=== PATIENT | female | born 1940 | race Caucasian/White ===

== ENCOUNTER → 2019-02-25 | Outpatient (CLI) | payer MEDICARE ==
--- NOTE | 2019-02-25 10:06 | Diagnostic Imaging Report ---
EXAM: Right upper quadrant abdominal ultrasound INDICATION: Right upper quadrant pain COMPARISON: None. TECHNIQUE: Transverse and longitudinal images of the right upper quadrant abdomen were obtained FINDINGS: Liver: Size: 13.3 cm in the right midclavicular line, normal Appearance: Normal echogenicity, smooth contour Mass: No focal masses Gallbladder: Multiple small calculi in the gallbladder. No cholecystic fluid, gallbladder distention, gallbladder wall thickening or reported sonographic Campo's sign. Gallbladder wall measures 2 mm. Bile Ducts: Intrahepatic Ducts: No dilatation Extrahepatic Ducts: Common bile duct measures 3 mm, no dilatation Pancreas: Visualized portions of the pancreatic head, neck and proximal body are normal. Kidney: The right kidney measures 10.4 cm without evidence of hydronephrosis or stone. Vessels: Aorta: Visualized portions are normal Inferior Vena Cava: Visualized portions are normal Main Portal Vein: 1.0 cm, normal size with hepatopetal flow. Free Fluid: No ascites or pleural effusion IMPRESSION: Cholelithiasis without sonographic evidence of acute cholecystitis. Signed by: Alessandro Norman MD on 02/25/2019 9:59 AM
== END ==
LOC: US 07:54
PROVIDERS: ATTEND Surgery
DX: R10.11 Right upper quadrant pain (principal)
CPT/HCPCS: 76705

== ENCOUNTER → 2019-03-15 | Day surgery (SDC) | payer MEDICARE ==
[2019-03-13 15:22] LABS: BILIRUBIN,URINE NEGATIVE (NEGATIVE); CLARITY,URINE SL CLOUDY (CLEAR); COLOR,URINE YELLOW (YELLOW); KETONES,URINE NEGATIVE (NEGATIVE); LEUKOCYTE ESTERASE ,URINE SMALL (NEGATIVE); NITRITE,URINE NEGATIVE (NEGATIVE); PROTEIN,URINE DIPSTICK NEGATIVE (NEGATIVE); URINE UROBILINOGEN 2 mg/dL (0.2 - 1)
--- NOTE | 2019-03-13 15:28 | Diagnostic Imaging Report ---
EXAMINATION: CHEST 2 VIEWS INDICATION: Pre-operative COMPARISON: None FINDINGS: LINES/TUBES:None LUNGS:The lungs are well-inflated. No focal consolidation or pulmonary edema. PLEURA:No pleural effusion or pneumothorax. MEDIASTINUM: The thoracic aorta is aneurysmal and tortuous with atherosclerotic calcifications. The heart is not enlarged. BONES/SOFT TISSUES:No acute osseous injury. ABDOMEN:No free air under the diaphragm. IMPRESSION: No focal pneumonia or pulmonary edema. Thoracic aortic aneurysm. Recommend further evaluation with chest CTA. Signed by: Alessandro Norman MD on 03/13/2019 3:25 PM
[~2019-03-15] MED LIST: ACETAMINOPHEN 1000 MG/100 ML IV ONE; ASPIRIN81 MG PO; BUPIVACAINE 0.25%/EPI 30ML SDV INJ ONE; CILOSTAZOL100 MG PO; CLOPIDOGREL75 MG PO; CRESTOR10 MG PO; DEXAMETHASONE SOD PHOS INJ 4 MG/ML VIAL ONE; FENTANYL CITRATE/PF 100MCG/2 ML INJ ONE; GLYBURIDE5 MG PO; GLYCOPYRROLATE INJ 1MG/ 5 ML SYR ONE; JANUVIA100 MG PO; LIDOCAINE HCL 2% JELLY 5 ML TUBE ONE; LIDOCAINE HCL 2% LOCAL INJ 5 ML SDV VIAL INJ ONE; LOTREL 5-10 MG1 EACH PO; MIDAZOLAM HCL 2 MG/2 ML VIAL ONE; MORPHINE SULFATE INJ 4 MG/ML INJ 1ML ONE; NEOSTIGMINE 5 MG/5ML SYR ONE; ONCE DAILY1 EACH PO; ONDANSETRON HCL INJ 2MG/ML 2ML 2 MG/ML VIAL ONE; PANTOPRAZOLE SO40 MG PO; POTASSIUM99 M1 PO; PROPOFOL IV EMULSION 10 MG/ML 20 ML VIAL ONE; ROCURONIUM BROMIDE 10 MG/ML 5ML VIAL ONE; SEVOFLURANE INHAL SOLN 250 ML PEN BTL ONE
--- OUTSIDE RECORDS SUMMARY | 2019-03-15 08:16 | XMS REPORT ---
Author [facility] Address Unknown Phone Unavailable Care Team Providers Care Skatesman Name Role Phone Lionel SAUNDERS Unavailable Unavailable FRANKIE ARMAS Unavailable Unavailable Problems This patient has no known problems. Allergies, Adverse Reactions, Alerts This patient has no known allergies or adverse reactions. Medications This patient has no known medications. Results Test Description Test Time Test Comments Text Results Atomic Results Result Comments CHEST 2 VIEWS 2019-03-13 15:23:00 [place] [address] Patient Name: CHRYSTAL ELMORE MR #: [id number] : 1940 Age/Sex: 78/F Req #: [id number] Adm Physician: Ordered by: RYAN SAUNDERS MD Report #: [id number] Location: OR Room/Bed: Procedure: [id number] DX/CHEST 2 VIEWS Exam Date: 03/13/19 Exam Time: 1510 REPORT STATUS: Signed EXAMINATION: CHEST 2 VIEWS INDICATION: Pre-operative COMPARISON: None FINDINGS: LINES/TUBES:None LUNGS:The lungs are well-inflated. No focal consolidation or pulmonary edema. PLEURA:No pleural effusion or pneumothorax. MEDIASTINUM: The thoracic aorta is aneurysmal and tortuous with atherosclerotic calcifications. The heart is not enlarged. BONES/SOFT TISSUES:No acute osseous injury. ABDOMEN:No free air under the diaphragm. IMPRESSION: No focal pneumonia or pulmonary edema. Thoracic aortic aneurysm. Recommend further evaluation with chest CTA. Signed by: Malathi Rahman MD on 03/13/2019 3:25 PM Dictated By: MALATHI RAHMAN MD 1525 Transcribed By: MARIA VICTORIA on 03/13/19 1525 COPY TO: RYAN SAUNDERS MD GALLBLADDER 2019-02-25 09:58:00 [place] [address] Patient Name: CHRYSTAL ELMORE MR #: [id number] : 1940 Age/Sex: 78/F Req #: [id number] Adm Physician: Ordered by: RYAN SAUNDERS MD Report #: [id number] Location: Room/Bed: Procedure: [id number] US/US GALLBLADDER Exam Date: 02/25/19 Exam Time: 0831 REPORT STATUS: Signed EXAM: Right upper quadrant abdominal ultrasound INDICA TION: Right upper quadrant pain COMPARISON: None. TECHNIQUE: Transverse and longitudinal images of the right upper quadrant abdomen were obtained FINDINGS: Liver: Size: 13.3 cm in the right midclavicular line, normal Appearance: Normal echogenicity, smooth contour Mass: No focal masses Gallbladder: Multiple small calculi in the gallbladder. No cholecystic fluid, gallbladder distention, gallbladder wall thickening or reported sonographic Campo's sign. Gallbladder wall measures 2 mm. Bile Ducts: Intrahepatic Ducts: No dilatation Extrahepatic Ducts: Common bile duct measures 3 mm, no dilatation Pancreas: Visualized portions of the pancreatic head, neck and proximal body are normal. Kidney: The right kidney measures 10.4 cm without evidence of hydronephrosis or stone. Vessels: Aorta: Visualized portions are normal Inferior Vena Cava: Visualized portions are normal Main Portal Vein: 1.0 cm, normal size with hepatopetal flow. Free Fluid: No ascites or pleural effusion IMPRESSION: Cholelithiasis without sonographic evidence of acute cholecystitis. Signed by: Mlaathi Rahman MD on 02/25/2019 9:59 AM Dictated By: MALATHI RAHMAN MD 8 Transcribed By: MARIA VICTORIA on 02/25/19958 COPY TO: RYAN SAUNDERS MD TISSUE EXAM 2017-09-22 16:13:00 Surgical Pathology Report Case: [id number] Authorizing Provider: Solis Armas, Collected: 09/18/2017 1448 Ordering Location: [facility] Received: 09/18/2017 1603 PERIOPERATIVE SERVICES Pathologist: Shaun Argueta MD Specimen: Car otid, Left, Left carotid artery plaque ARTERY, LEFT CAROTID, ENDARTERECTOMY:CALCIFIC ATHEROSCLEROTIC PLAQUE WITH FOCAL PLAQUE EROSION AND FIBRIN THROMBOSIS Signing Pathologist Direct Phone Line: [phone] signed by Shaun Argueta MD on 09/22/2017 at 4:13 [id number]; [id number] carotid stenosisA. Left carotid artery plaqueThe specimen is received in a saline labeled with the patient's information and labeled "left carotid artery plaque" and consists of a calcified tubular shaped segment of tissue measuring 3 cm in length x 0.5 cm in diameter. Java Security Architect sections are submitted A1 for decalcification. DB/plPerformed POCT-GLUCOSE METER 2017-09-20 12:32:00 POC-GLUCOSE METER (BEAKER) (test jjzz=7419) 131 mg/dL 70-110 TESTED AT [place] [id number] [facility] [address] POCT-GLUCOSE [id number] 08:28:00* Test Item Value Reference Range Comments POC-GLUCOSE METER (BEAKER) (test djop=4902) 172 mg/dL 70-110 TESTED AT [place] [id number] [facility] [address] [id number] 06:34:00* Test Item Value Reference Range Comments PHOSPHORUS (BEAKER) (test uhhh=406) 2.4 mg/dL 2.3-4.7 [id number] 06:34:00* Test Item Value Reference Range Comments MAGNESIUM (BEAKER) (test zqti=757) 1.9 mg/dL 1.6-2.6 BASIC METABOLIC [id number] 06:34:00* Test Item Value Reference Range Comments SODIUM (BEAKER) (test nykc=336) 139 meq/L 136-145 POTASSIUM (BEAKER) (test akua=239) 4.0 meq/L 3.5-5.1 CHLORIDE (BEAKER) (test hnht=173) 104 meq/L 98-107 CO2 (BEAKER) (test kyzq=546) 28 meq/L 22-29 BLOOD UREA NITROGEN (BEAKER) (test gcmj=740) 9 mg/dL 7-21 CREATININE (BEAKER) (test ehjt=059) 0.58 mg/dL 0.57-1.25 GLUCOSE RANDOM (BEAKER) (test apsc=060) 158 mg/dL 70-105 CALCIUM (BEAKER) (test wipy=275) 8.5 mg/dL 8.4-10.2 EGFR (BEAKER) (test wtxa=5675) 100 mL/min/1.73 sq m ESTIMATED GFR IS NOT ACCURATE CREATININE CLEARANCE IN PREDICTING GLOMERULAR FILTRATION RATE. ESTIMATED GFR IS NOT APPLICABLE FOR DIALYSIS PATIENTS. [id number] 05:16:00* Test Item Value Reference Range Comments PARTIAL THROMBOPLASTIN TIME (BEAKER) (test hqmz=259) 31.4 seconds 22.5-36.0 PROTHROMBIN TIME/[id number] 05:15:00* Test Item Value Reference Range Comments PROTIME (BEAKER) (test zdym=688) 13.9 seconds 11.7-14.7 INR (BEAKER) (test inlu=756) 1.1 <=5.9 RECOMMENDED COUMADIN/WARFARIN INR THERAPY RANGESSTANDARD DOSE: 2.0 - 3.0 Inclu elise: PROPHYLAXIS for venous thrombosis, systemic embolization; TREATMENT for suman ous thrombosis and/or pulmonary embolus.HIGH RISK: Target INR is 2.5-3.5 for pat ients with mechanical heart valves.CBC (HEMOGRAM ONLY)2017-09-20 05:05:00* Test Item Value Reference Range Comments WHITE BLOOD CELL COUNT (BEAKER) (test nkln=554) 9.7 K/ L 3.5-10.5 RED BLOOD CELL COUNT (BEAKER) (test joru=134) 4.33 M/ L 3.93-5.22 HEMOGLOBIN (BEAKER) (test srjz=194) 12.0 GM/DL 11.2-15.7 HEMATOCRIT (BEAKER) (test bqgp=815) 37.8 % 34.1-44.9 MEAN CORPUSCULAR VOLUME (BEAKER) (test ziyp=201) 87.3 fL 79.4-94.8 MEAN CORPUSCULAR HEMOGLOBIN (BEAKER) (test xipb=876) 27.7 pg 25.6-32.2 MEAN CORPUSCULAR HEMOGLOBIN CONC (BEAKER) (test ukqj=222) 31.7 GM/DL 32.2-35.5 RED CELL DISTRIBUTION WIDTH (BEAKER) (test laqb=820) 15.3 % 11.7-14.4 PLATELET COUNT (BEAKER) (test xefw=059) 191 K/CU MM 150-450 MEAN PLATELET VOLUME (BEAKER) (test xefq=004) 11.0 fL 9.4-12.3 NUCLEATED RED BLOOD CELLS (BEAKER) (test puow=438) 0 /100 WBC 0-0 POCT-GLUCOSE [id number] 21:02:00* Test Item Value Reference Range Comments POC-GLUCOSE METER (BEAKER) (test enal=7077) 144 mg/dL 70-110 TESTED AT [place] [id number] [facility] [address] POCT-GLUCOSE [id number] 17:36:00* Test Item Value Reference Range Comments POC-GLUCOSE METER (BEAKER) (test qhkb=9579) 177 mg/dL 70-110 TESTED AT [place] [id number] [facility] [address] POCT-GLUCOSE [id number] 14:10:00* Test Item Value Reference Range Comments POC-GLUCOSE METER (BEAKER) (test xehf=8536) 182 mg/dL 70-110 TESTED AT [place] [id number] [facility] [address] RAD, CHEST, 1 VIEW, NON [id number] 13:56:00Reason for exam:->hypoxiaShould this be performed at the bedside?->YesFINAL REPORT TECHNIQUE: Frontal chest radiograph dated 09/19/2017. CLINICAL HISTORY: Hypoxia COMPARISON STUDY: Chest radiograph dated 09/12/[address] dated 09/05/2017 IMPRESSION:Bibasilar atelectasis is present. The lungs are otherwise clear. No pleural effusion or pneumothorax. Cardiomediastinal silhouette is stable in size. Aneurysm of the descending thoracic aorta is again identified. No pulmonary edema. No fracture. Degenerative changes are seen in the spine. IMPRESSION: Bibasilar atelectasis. Signed: Gisel Gamez MDReport Verified Date/Time: 09/19/2017 13:56:35 Reading Location: [facility] Radiology Reading Room C METABOLIC [id number] 03:30:00* Test Item Value Reference Range Comments SODIUM (BEAKER) (test edgf=668) 137 meq/L 136-145 POTASSIUM (BEAKER) (test pdzl=094) 4.4 meq/L 3.5-5.1 CHLORIDE (BEAKER) (test uvjn=704) 106 meq/L 98-107 CO2 (BEAKER) (test mxdv=251) 22 meq/L 22-29 BLOOD UREA NITROGEN (BEAKER) (test zbks=314) 13 mg/dL 7-21 CREATININE (BEAKER) (test uksl=532) 0.58 mg/dL 0.57-1.25 GLUCOSE RANDOM (BEAKER) (test sikp=974) 146 mg/dL 70-105 CALCIUM (BEAKER) (test mdkv=583) 7.9 mg/dL 8.4-10.2 EGFR (BEAKER) (test lvvo=3044) 100 mL/min/1.73 sq m ESTIMATED GFR IS NOT ACCURATE CREATININE CLEARANCE IN PREDICTING GLOMERULAR FILTRATION RATE. ESTIMATED GFR IS NOT APPLICABLE FOR DIALYSIS PATIENTS. [id number] 03:26:00* Test Item Value Reference Range Comments PHOSPHORUS (BEAKER) (test pzsb=964) 3.8 mg/dL 2.3-4.7 [id number] 03:26:00* Test Item Value Reference Range Comments MAGNESIUM (BEAKER) (test xjln=330) 1.8 mg/dL 1.6-2.6 [id number] 03:24:00* Test Item Value Reference Range Comments PARTIAL THROMBOPLASTIN TIME (BEAKER) (test ovga=386) 28.0 seconds 22.5-36.0 PROTHROMBIN TIME/[id number] 03:23:00* Test Item Value Reference Range Comments PROTIME (BEAKER) (test synj=428) 14.4 seconds 11.7-14.7 INR (BEAKER) (test gddt=865) 1.1 <=5.9 RECOMMENDED COUMADIN/WARFARIN INR THERAPY RANGESSTANDARD DOSE: 2.0 - 3.0 Inclu elise: PROPHYLAXIS for venous thrombosis, systemic embolization; TREATMENT for suman ous thrombosis and/or pulmonary embolus.HIGH RISK: Target INR is 2.5-3.5 for pat ients with mechanical heart valves.LACTIC ACID, VENOUS, WHOLE [id number] 03:23:00* Test Item Value Reference Range Comments LACTATE BLOOD VENOUS (2) (BEAKER) (test oseu=6767) 0.9 mmol/L 0.5-2.2 Effective 09/02/2015: Units/Reference Range ChangeNew: 0.5-2.2 mmol/L Previous: 5 -20 mg/dLCBC (HEMOGRAM ONLY)2017-09-19 03:13:00* Test Item Value Reference Range Comments WHITE BLOOD CELL COUNT (BEAKER) (test otmp=051) 8.3 K/ L 3.5-10.5 RED BLOOD CELL COUNT (BEAKER) (test gyhl=841) 4.49 M/ L 3.93-5.22 HEMOGLOBIN (BEAKER) (test mzkk=116) 12.2 GM/DL 11.2-15.7 HEMATOCRIT (BEAKER) (test anoq=599) 40.7 % 34.1-44.9 MEAN CORPUSCULAR VOLUME (BEAKER) (test kala=682) 90.6 fL 79.4-94.8 MEAN CORPUSCULAR HEMOGLOBIN (BEAKER) (test nvix=373) 27.2 pg 25.6-32.2 MEAN CORPUSCULAR HEMOGLOBIN CONC (BEAKER) (test vamc=589) 30.0 GM/DL 32.2-35.5 RED CELL DISTRIBUTION WIDTH (BEAKER) (test kdtd=325) 15.2 % 11.7-14.4 PLATELET COUNT (BEAKER) (test bmpf=168) 197 K/CU MM 150-450 MEAN PLATELET VOLUME (BEAKER) (test aqcx=717) 11.1 fL 9.4-12.3 NUCLEATED RED BLOOD CELLS (BEAKER) (test ohkw=690) 0 /100 WBC 0-0 [id number] 16:46:00* Test Item Value Reference Range Comments PHOSPHORUS (BEAKER) (test owhw=329) 3.7 mg/dL 2.3-4.7 [id number] 16:46:00* Test Item Value Reference Range Comments MAGNESIUM (BEAKER) (test aggq=682) 1.6 mg/dL 1.6-2.6 BASIC METABOLIC [id number] 16:46:00* Test Item Value Reference Range Comments SODIUM (BEAKER) (test znhb=564) 137 meq/L 136-145 POTASSIUM (BEAKER) (test yfou=273) 3.9 meq/L 3.5-5.1 CHLORIDE (BEAKER) (test mzkt=705) 104 meq/L 98-107 CO2 (BEAKER) (test izuq=025) 24 meq/L 22-29 BLOOD UREA NITROGEN (BEAKER) (test stvf=589) 14 mg/dL 7-21 CREATININE (BEAKER) (test nnqq=881) 0.63 mg/dL 0.57-1.25 GLUCOSE RANDOM (BEAKER) (test ivpb=981) 141 mg/dL 70-105 CALCIUM (BEAKER) (test jfjh=490) 8.1 mg/dL 8.4-10.2 EGFR (BEAKER) (test ypkq=5155) 91 mL/min/1.73 sq m ESTIMATED GFR IS NOT ACCURATE CREATININE CLEARANCE IN PREDICTING GLOMERULAR FILTRATION RATE. ESTIMATED GFR IS NOT APPLICABLE FOR DIALYSIS PATIENTS. [id number] 16:26:00* Test Item Value Reference Range Comments PARTIAL THROMBOPLASTIN TIME (BEAKER) (test fnci=046) 33.1 seconds 22.5-36.0 PROTHROMBIN TIME/[id number] 16:25:00* Test Item Value Reference Range Comments PROTIME (BEAKER) (test jnof=939) 16.1 seconds 11.7-14.7 INR (BEAKER) (test prid=510) 1.3 <=5.9 RECOMMENDED COUMADIN/WARFARIN INR THERAPY RANGESSTANDARD DOSE: 2.0 - 3.0 Inclu elise: PROPHYLAXIS for venous thrombosis, systemic embolization; TREATMENT for suman ous thrombosis and/or pulmonary embolus.HIGH RISK: Target INR is 2.5-3.5 for pat ients with mechanical heart valves.CBC W/PLT COUNT & AUTO [id number] 16:16:00* Test Item Value Reference Range Comments WHITE BLOOD CELL COUNT (BEAKER) (test pwik=208) 9.9 K/ L 3.5-10.5 RED BLOOD CELL COUNT (BEAKER) (test iedm=104) 4.48 M/ L 3.93-5.22 HEMOGLOBIN (BEAKER) (test ccdk=279) 12.0 GM/DL 11.2-15.7 HEMATOCRIT (BEAKER) (test qhsy=428) 38.5 % 34.1-44.9 MEAN CORPUSCULAR VOLUME (BEAKER) (test ooeg=599) 85.9 fL 79.4-94.8 MEAN CORPUSCULAR HEMOGLOBIN (BEAKER) (test mmpw=728) 26.8 pg 25.6-32.2 MEAN CORPUSCULAR HEMOGLOBIN CONC (BEAKER) (test pazz=511) 31.2 GM/DL 32.2-35.5 RED CELL DISTRIBUTION WIDTH (BEAKER) (test rils=788) 15.0 % 11.7-14.4 PLATELET COUNT (BEAKER) (test ylzs=614) 182 K/CU MM 150-450 MEAN PLATELET VOLUME (BEAKER) (test cnnh=327) 10.3 fL 9.4-12.3 NUCLEATED RED BLOOD CELLS (BEAKER) (test tier=160) 0 /100 WBC 0-0 NEUTROPHILS RELATIVE PERCENT (BEAKER) (test okos=311) 57 % LYMPHOCYTES RELATIVE PERCENT (BEAKER) (test xqki=285) 33 % MONOCYTES RELATIVE PERCENT (BEAKER) (test ywbx=348) 8 % EOSINOPHILS RELATIVE PERCENT (BEAKER) (test yhvq=804) 2 % BASOPHILS RELATIVE PERCENT (BEAKER) (test isgl=741) 1 % NEUTROPHILS ABSOLUTE COUNT (BEAKER) (test jres=862) 5.60 K/ L 1.56-6.13 LYMPHOCYTES ABSOLUTE COUNT (BEAKER) (test aqcp=886) 3.21 K/ L 1.18-3.74 MONOCYTES ABSOLUTE COUNT (BEAKER) (test evpu=191) 0.76 K/ L 0.24-0.36 EOSINOPHILS ABSOLUTE COUNT (BEAKER) (test eltf=640) 0.17 K/ L 0.04-0.36 BASOPHILS ABSOLUTE COUNT (BEAKER) (test lfsx=388) 0.06 K/ L 0.01-0.08 IMMATURE GRANULOCYTES-RELATIVE PERCENT (BEAKER) (test pxux=4928) 1 % 0-1 BLOOD GAS, [id number] 16:12:00* Test Item Value Reference Range Comments PH ARTERIAL (BEAKER) (test aomv=112) 7.35 7.35-7.45 PCO2 ARTERIAL (BEAKER) (test qfbs=711) 39 mmHg 35-45 PO2 ARTERIAL (BEAKER) (test rtvz=867) 72 mmHg 80-90 O2 SATURATION ARTERIAL (BEAKER) (test tpdo=895) 94.3 % 96.0-97.0 HCO3 ARTERIAL (BEAKER) (test nhxm=677) 21 mmol/L 21-29 BASE EXCESS ARTERIAL (BEAKER) (test mzbz=718) -4.7 mmol/L -2.0-3.0 PATIENT TEMPERATURE (BEAKER) (test pajq=8008) 36.4 C FIO2 (BEAKER) (test agle=0009) 44.0 % POCT-GLUCOSE [id number] 08:39:00* Test Item Value Reference Range Comments POC-GLUCOSE METER (BEAKER) (test kbal=0370) 143 mg/dL 70-110 TESTED AT [facility] [address] [facility] [address] RAD, CHEST, 2 [id number] 13:06:00Reason for exam:->surgeryFINAL REPORT TECHNIQUE: Frontal and lateral views of the chest. INDICATION: 77-year-old woman for preoperative evaluation for carotid end arterectomy. COMPARISON: None. FINDINGS: LINES/TUBES: None. LUNGS: The lungs ar e well inflated and clear. No consolidation or pulmonary edema. PLEURA: No pleur al effusion or pneumothorax. HEART AND MEDIASTINUM: The cardiomediastinal silhou ette is within normal limits. Atherosclerotic calcifications in the dilated tort uous thoracic aorta. SOFT TISSUES AND BONES: Degenerative changes of the visuali zed spine. Soft tissues are unremarkable. IMPRESSION:Dilated tortuous thoracic aorta. Otherwise, no acute cardiopulmonary abnormalities. Signed: Bess Phillips veport Verified Date/Time: 09/12/2017 13:06:51 Reading Location: [address] Radiology Reading Room TITIS B [id number] 12:34:00* Test Item Value Reference Range Comments HEPATITIS B CORE TOTAL ANTIBODY (BEAKER) (test wqpj=193) Nonreactive Nonreactive HEPATITIS B SURFACE ANTIBODY (BEAKER) (test tzvk=514) < mIU/mL <8.0 HEPATITIS B SURFACE ANTIGEN (2) (BEAKER) (test scwe=3156) Nonreactive Nonreactive HEPATITIS C [id number] 12:27:00* Test Item Value Reference Range Comments HEPATITIS C ANTIBODY (BEAKER) (test ztkx=142) Nonreactive Nonreactive HIV-1 ANTIGEN WITH HIV-1/2 [id number] 12:27:00* Test Item Value Reference Range Comments HIV-1 ANTIGEN WITH HIV 1\\T\\2 ANTIBODY (2) (BEAKER) (test bppa=1927) Nonreactive Nonreactive URINALYSIS W/ [id number] 12:18:00* Test Item Value Reference Range Comments COLOR (BEAKER) (test umas=224) Light Yellow CLARITY (BEAKER) (test vqnh=555) Clear SPECIFIC GRAVITY UA (BEAKER) (test qnpq=478) 1.010 1.001-1.035 PH UA (BEAKER) (test hnoh=769) 8.0 5.0-8.0 PROTEIN UA (BEAKER) (test goyl=728) Negative Negative GLUCOSE UA (BEAKER) (test czte=428) Negative Negative KETONES UA (BEAKER) (test xzgz=095) Negative Negative BILIRUBIN UA (BEAKER) (test dhan=490) Negative Negative BLOOD UA (BEAKER) (test nkyy=123) Negative Negative NITRITE UA (BEAKER) (test ofoo=530) Negative Negative LEUKOCYTE ESTERASE UA (BEAKER) (test hqph=504) Large Negative UROBILINOGEN UA (BEAKER) (test vqxb=390) 0.2 mg/dL 0.2-1.0 RBC UA (BEAKER) (test qkaf=483) < /HPF WBC UA (BEAKER) (test sbeo=061) 22 /HPF MUCUS (BEAKER) (test jrty=0013) Rare SQUAMOUS EPITHELIAL (BEAKER) (test tvfl=219) 1 /HPF SOURCE(BEAKER) (test aval=9056) [id number] 12:08:00* Test Item Value Reference Range Comments LIPASE (BEAKER) (test euvu=371) 43 U/L 8-78 [id number] 12:08:00* Test Item Value Reference Range Comments AMYLASE (BEAKER) (test adaw=838) 41 U/L 25-125 BASIC METABOLIC [id number] 12:08:00* Test Item Value Reference Range Comments SODIUM (BEAKER) (test zgbe=357) 138 meq/L 136-145 POTASSIUM (BEAKER) (test vyxu=383) 4.5 meq/L 3.5-5.1 CHLORIDE (BEAKER) (test esay=809) 101 meq/L 98-107 CO2 (BEAKER) (test yefx=749) 30 meq/L 22-29 BLOOD UREA NITROGEN (BEAKER) (test waal=936) 13 mg/dL 7-21 CREATININE (BEAKER) (test ukyy=146) 0.67 mg/dL 0.57-1.25 GLUCOSE RANDOM (BEAKER) (test wagz=927) 81 mg/dL 70-105 CALCIUM (BEAKER) (test qauy=901) 9.4 mg/dL 8.4-10.2 EGFR (BEAKER) (test nldz=2511) 85 mL/min/1.73 sq m ESTIMATED GFR IS NOT ACCURATE CREATININE CLEARANCE IN PREDICTING GLOMERULAR FILTRATION RATE. ESTIMATED GFR IS NOT APPLICABLE FOR DIALYSIS PATIENTS. HEPATIC FUNCTION [id number] 12:08:00* Test Item Value Reference Range Comments TOTAL PROTEIN (BEAKER) (test ijpo=643) 6.7 gm/dL 6.0-8.3 ALBUMIN (BEAKER) (test aofz=7851) 4.2 g/dL 3.5-5.0 BILIRUBIN TOTAL (BEAKER) (test ajoz=962) 0.7 mg/dL 0.2-1.2 BILIRUBIN DIRECT (BEAKER) (test ygdr=665) 0.2 mg/dL 0.1-0.5 ALKALINE PHOSPHATASE (BEAKER) (test utji=110) 99 U/L 40-150 AST (SGOT) (BEAKER) (test bnaa=239) 21 U/L 5-34 ALT (SGPT) (BEAKER) (test gero=644) 14 U/L 6-55 LACTATE DEHYDROGENASE (LDH)2017-09-12 12:08:00* Test Item Value Reference Range Comments LACTATE DEHYDROGENASE (BEAKER) (test sles=177) 197 U/L 125-220 [id number] 11:53:00* Test Item Value Reference Range Comments PARTIAL THROMBOPLASTIN TIME (BEAKER) (test pnps=898) 27.7 seconds 22.5-36.0 PROTHROMBIN TIME/[id number] 11:52:00* Test Item Value Reference Range Comments PROTIME (BEAKER) (test zxvo=316) 13.1 seconds 11.7-14.7 INR (BEAKER) (test wzvp=112) 1.0 <=5.9 RECOMMENDED COUMADIN/WARFARIN INR THERAPY RANGESSTANDARD DOSE: 2.0 - 3.0 Inclu elise: PROPHYLAXIS for venous thrombosis, systemic embolization; TREATMENT for suman ous thrombosis and/or pulmonary embolus.HIGH RISK: Target INR is 2.5-3.5 for pat ients with mechanical heart valves.RETICULOCYTE [id number] 11:49:00* Test Item Value Reference Range Comments RETICULOCYTE COUNT PCT (BEAKER) (test jobj=005) 1.8 % 0.5-1.7 CBC W/PLT COUNT & AUTO [id number] 11:49:00* Test Item Value Reference Range Comments WHITE BLOOD CELL COUNT (BEAKER) (test lejw=431) 8.0 K/ L 3.5-10.5 RED BLOOD CELL COUNT (BEAKER) (test vgye=266) 4.93 M/ L 3.93-5.22 HEMOGLOBIN (BEAKER) (test ngmb=071) 13.5 GM/DL 11.2-15.7 HEMATOCRIT (BEAKER) (test rncb=188) 42.8 % 34.1-44.9 MEAN CORPUSCULAR VOLUME (BEAKER) (test fxrv=650) 86.8 fL 79.4-94.8 MEAN CORPUSCULAR HEMOGLOBIN (BEAKER) (test jdjw=123) 27.4 pg 25.6-32.2 MEAN CORPUSCULAR HEMOGLOBIN CONC (BEAKER) (test qyia=933) 31.5 GM/DL 32.2-35.5 RED CELL DISTRIBUTION WIDTH (BEAKER) (test wclo=322) 15.2 % 11.7-14.4 PLATELET COUNT (BEAKER) (test neln=450) 237 K/CU MM 150-450 MEAN PLATELET VOLUME (BEAKER) (test ydam=749) 10.2 fL 9.4-12.3 NUCLEATED RED BLOOD CELLS (BEAKER) (test sifj=893) 0 /100 WBC 0-0 NEUTROPHILS RELATIVE PERCENT (BEAKER) (test vcam=251) 58 % LYMPHOCYTES RELATIVE PERCENT (BEAKER) (test btld=831) 30 % MONOCYTES RELATIVE PERCENT (BEAKER) (test iqco=713) 9 % EOSINOPHILS RELATIVE PERCENT (BEAKER) (test vqsj=609) 2 % BASOPHILS RELATIVE PERCENT (BEAKER) (test nczj=155) 1 % NEUTROPHILS ABSOLUTE COUNT (BEAKER) (test lcvk=274) 4.67 K/ L 1.56-6.13 LYMPHOCYTES ABSOLUTE COUNT (BEAKER) (test zyxi=197) 2.39 K/ L 1.18-3.74 MONOCYTES ABSOLUTE COUNT (BEAKER) (test bnnv=521) 0.72 K/ L 0.24-0.36 EOSINOPHILS ABSOLUTE COUNT (BEAKER) (test pblo=600) 0.13 K/ L 0.04-0.36 BASOPHILS ABSOLUTE COUNT (BEAKER) (test wlkc=508) 0.07 K/ L 0.01-0.08 IMMATURE GRANULOCYTES-RELATIVE PERCENT (BEAKER) (test hfhz=1071) 0 % 0-1
[2019-03-15 09:05] LABS: BASOPHILS # (AUTO) 0.1 (0.0-0.1); BASOPHILS % 0.6 % (0.0-1.0); EOSINOPHILS # (AUTO) 0.1 (0.0-0.4); EOSINOPHILS % 0.8 % (0.0-6.0); HEMATOCRIT 41.4 % (34.2-44.1); HEMOGLOBIN 13.3 g/dL (12.0-16.0); LYMPHOCYTES # (AUTO) 2.2 (1.0-3.2); LYMPHOCYTES % 21.6 % (18.0-39.1); MEAN CORPUSCULAR HEMOGLOBIN 28.5 pg (28-32); MEAN CORPUSCULAR HGB CONC 32.1 g/dL (31-35); MEAN CORPUSCULAR VOLUME 88.7 fL (81-99); MONOCYTES # (AUTO) 1.2 (0.2-0.8); MONOCYTES % 11.8 % (4.4-11.3); NEUTROPHILS # (AUTO) 6.6 (2.1-6.9); NEUTROPHILS % 64.8 % (38.7-80.0); PLATELET COUNT 246 x10e3/uL (140-360); RED BLOOD COUNT 4.67 x10e6/uL (3.6-5.1); RED CELL DISTRIBUTION WIDTH 14.5 % (11.7-14.4)
[2019-03-15 10:01] LABS: ALANINE AMINOTRANSFERASE 7 IU/L (0-55); ALBUMIN 3.4 g/dL (3.5-5.0); ALBUMIN/GLOBULIN RATIO 1.2 (0.8-2.0); ALKALINE PHOSPHATASE 107 IU/L (40-150); ANION GAP 14.3 mmol/L (8-16); BLOOD UREA NITROGEN 12 mg/dL (7-26); BUN/CREATININE RATIO 19 (6-25); CALCIUM 9.4 mg/dL (8.4-10.2); CARBON DIOXIDE 27 mmol/L (22-29); CHLORIDE 102 mmol/L (98-107); CREATININE, SERUM 0.64 mg/dL (0.57-1.11); EST GLOMERULAR FILTRATION RATE > 60 ML/MIN (60-); GLUCOSE 111 mg/dL (74-118); POTASSIUM 4.3 mmol/L (3.5-5.1); SODIUM 139 mmol/L (136-145)
[2019-03-15 14:45] VITALS: BP 119/74
--- NOTE | 2019-03-15 20:10 | Operative Report ---
DATE OF PROCEDURE: 03/15/2019 SURGEON: Antonio Taylor MD PREOPERATIVE DIAGNOSES: Cholecystitis and cholelithiasis. POSTOPERATIVE DIAGNOSES: Cholecystitis and cholelithiasis. OPERATION PERFORMED: Laparoscopic cholecystectomy. ELECTRONICS HARDWARE DESIGN ENGINEER: Jacques Taylor MD and TONJA Stephens. ANESTHESIA: General endotracheal. COMPLICATIONS: None. ESTIMATED BLOOD LOSS: Minimal. DESCRIPTION OF PROCEDURE: With the patient lying in bed in the supine position under good general endotracheal anesthesia, the abdomen was prepped with Betadine solution and draped in the usual manner. A Veress needle was introduced into the right upper quadrant and pneumoperitoneum was established without any difficulty. A 5-mm trocar was placed in the right subcostal region and a 5-mm video laparoscope was placed into the intraabdominal cavity. Video laparoscopy at this point revealed some adhesions to the subumbilical area from the patient's previous lower abdominal surgery. The adhesions were then taken down with cautery scissors and the subumbilical space was cleared. An 11-mm trocar was then placed into the umbilicus and a 10-mm video laparoscope was placed into the intraabdominal cavity. Laparoscopy revealed again the previously described adhesions. The only other positive findings was to the gallbladder that had adhesions all the way up to the top and there was a rather redundant left lobe of the liver. The rest of the abdominal exploration was otherwise within normal limits. The adhesions to the gallbladder were then slowly and carefully taken down. The peritoneum overlying the neck of the gallbladder was then opened and the cystic duct was identified. The cystic duct was followed to its junction with the common duct. The cystic duct was then circumferentially dissected away from the common duct, doubly clipped, and divided. The cystic artery was similarly doubly clipped and divided. The gallbladder was then slowly and carefully taken off the liver bed using the cautery scissors and perfect hemostasis was ascertained. The gallbladder was then grasped through the umbilical port and removed without any difficulty. Video laparoscopy was then again carried out. The liver bed was found to be perfectly dry. All the excess fluid was aspirated. The pneumoperitoneum was evacuated and all the trocars were removed under direct vision. The midline fascia at the umbilicus was then closed with a [id number] of #0 Vicryl. All layers were infiltrated on the way out with solution of 0.25% Marcaine. Subcutaneous tissue was approximated with 3-0 Vicryl and the skin was closed with subcuticular 5-0 Vicryl. Benzoin, Steri-Strips, and Band-Aids were applied. The sponge, lap, and needle count was correct. The patient tolerated the procedure well and returned to the recovery room in stable condition. MD DIRK Santos/AMBER /[id number]
== END | disposition home or self-care (01) ==
LOC: OR 08:09
PROVIDERS: ATTEND Surgery
DX: K80.10 Calculus of gallbladder with chronic cholecystitis without obstruction (principal); K82.8 Other specified diseases of gallbladder; Z01.810 Encounter for preprocedural cardiovascular examination; Z01.812 Encounter for preprocedural laboratory examination; Z01.811 Encounter for preprocedural respiratory examination; E11.9 Type 2 diabetes mellitus without complications; K44.9 Diaphragmatic hernia without obstruction or gangrene; Z86.73 Personal history of transient ischemic attack (TIA), and cerebral infarction without residual deficits; I25.10 Atherosclerotic heart disease of native coronary artery without angina pectoris; I10 Essential (primary) hypertension; E78.00 Pure hypercholesterolemia, unspecified; I71.4 Abdominal aortic aneurysm, without rupture
CPT/HCPCS: 36415; 47562; 71046; 80053; 81003; 82948; 85025; 88304; C1766; J0131; J1100; J2001 ×2; J2250; J2270; J2405; J2704; J3010; J3490